=== PATIENT | male | born 1990 | race Caucasian/White ===

== ENCOUNTER 2019-08-12 12:00 | Emergency (ER) | payer SELFPAY ==
[2019-08-12 12:55] VITALS: BP 137/74; PULSE 80; TEMP 98.5; BMI 31.7
--- NOTE | 2019-08-12 13:14 | PDOC ---
History of Present Illness - General Chief Complaint: Lightheaded Stated Complaint: POPPING FEELING OF BRAIN 1-2 YEARS Time Seen by Provider: 08/12/19 12:52 History Source: Patient Exam Limitations: No Limitations - History of Present Illness Initial Comments: 08/12/19 13:13 28y M hx of deperssion (hx of psych hospitalizations 7 yrs ago), presents with complaint 1.5yr of popping sensation in his temples intermittently. Pt states the symptmos do not hurt, but is described as a popping sensation in his temples that lasts a split second - it is more noticible when he is at rest. he denies any heaache, dizziness, n/v, vision changes, focal numbness/tingling/ weakness, changes in his hearing, neck pain, back pain, abd pain. The symptoms are unchanged from his baseline he came in today as he figured it was time to have it evaluated. Past History - Past Medical History Allergies/Adverse Reactions: Allergies Allergy/AdvReac Type Severity Reaction Status Date / Time No Known Allergies Allergy Verified 08/12/19 12:29 Home Medications: Ambulatory Orders No Home Medications 0 dose .ROUTE UTDICT 04/26/13 COPD: No - Psycho Social/Smoking Cessation Hx Smoking History: Never smoked Number of Cigarettes Smoked Daily: 0 Hx Alcohol Use: No Drug/Substance Use Hx: No Substance Use Type: None Review of Systems - Review of Systems Able to Perform ROS?: Yes Comments:: 08/12/19 14:06 Constitutional - no reported Fever, Chills, HEENT: no reported vision changes, sore throat Respiratory: no reported cough, sob, hemoptysis Cardiac: no reported chest pain, palpitations, light headedness, leg swelling Abd/GI: no reported abd pain, nausea, vomiting, blood per rectum, melena, diarrhea : no reported dysuria, frequency, discharge Musculskelatal - no reported back pain, joint swelling skin - no reported bruising, erythema, rash neurological: +popping sensation onhis head no reported headache, numbness, focal weakness, tingling, ataxia, hematologic: no reported easy bruising, easy bleeding *Physical Exam - Vital Signs Last Vital Signs Temp Pulse Resp BP Pulse Ox 98.5 F 80 16 137/74 99 08/12/19 12:29 08/12/19 12:29 08/12/19 12:29 08/12/19 12:29 08/12/19 12:29 - Physical Exam 08/12/19 14:08 GENERAL: The patient is awake, alert, and fully oriented, Nontoxic - in no acute distress. HEAD: Normocephalic, atraumatic. EYES: extraocular movements intact, sclera anicteric, conjunctiva clear. ENT: Normal voice, Moist mucous membranes. NECK: Normal range of motion, supple LUNGS: Breath sounds equal, clear to auscultation bilaterally. No wheezes, no rhonchi, no rales. HEART: Regular rate and rhythm, normal S1 and S2 without murmur, rub or gallop. ABDOMEN: Soft, nontender, No guarding, no rebound. No CVA tenderness EXTREMITIES: Normal range of motion, no edema. NEUROLOGICAL: No facial assymetry, Normal speech, PSYCH: Normal mood, normal affect. SKIN: Warm, Dry, normal turgor, NEURO: Mental status: The patient is oriented x3. Cranial nerves: Cranial nerves II through XII are intact Motor: The upper extremities are 5 over 5 in all muscle groups. The lower extremities are 5 over 5 in all muscle groups. Negative pronator drift Sensation: Sensation is intact to light touch throughout. romberg negative Cerebellar: [id number] is normal in both upper extremities. Heel-knee- mckeon is normal in both lower extremities. rapid alternating movements are normal. Reflexes: 2+ and symmetric in the upper and lower extremities. Gait: Normal. Heel and toe walking are normal. Tandem gait is normal. Medical Decision Making - Medical Decision Making 08/12/19 14:08 Unclear etiology for the patient's symptoms he is neurologically intact, denies any Headache. I will have the patient follow-up with neurology for further management, return precautions were discussed. I discussed the physical exam findings, ancillary test results and final diagnoses with the patient. I answered all of the patient's questions. The patient was satisfied with the care received and felt comfortable with the discharge plan and treatment plan. The patient will call their primary care physician within 24 hours to arrange follow-up and will return to the Emergency Department with any new, persistent or worsening symptoms. Discharge - Discharge Information Problems reviewed: Yes Clinical Impression/Diagnosis: Sensation of pressure in face Condition: Good Disposition: HOME - Admission No - Follow up/Referral Referrals: Aster,Emad, MD [Staff Physician] - - Patient Discharge Instructions Patient Printed Discharge Instructions: DI for Headache Additional Instructions: Return to the emergency department immediately with ANY new, persistent or worsening symptoms Including any headache, blurry vision, numbness, tingling, weakness or any other concerns. You MUST call and follow up with your doctor and a neurologist tomorrow for further evaluation of your symptoms. Results were discussed with you. Please make sure your doctor reviews the results of your emergency evaluation. Your Emergency Department visit is not complete without a follow up with your doctor. Print Language: LAO - Post Discharge Activity
== END 2019-08-12 14:06 | disposition home or self-care (01) ==
LOC: FER 12:00
DX: G50.1 Atypical facial pain (principal); F32.9 Major depressive disorder, single episode, unspecified; F99 Mental disorder, not otherwise specified
CPT/HCPCS: 82962; 99282-25

== ENCOUNTER 2021-11-10 12:05 | Emergency (ER) | payer SELFPAY ==
[2021-11-10 12:16] VITALS: BP 131/72; PULSE 90; TEMP 98.3; BMI 28.8
== END 2021-11-10 13:38 | disposition home or self-care (01) ==
LOC: JERFT 12:05
DX: L03.011 Cellulitis of right finger (principal)
CPT/HCPCS: 87070; 87186; 87205; 99282-25